=== PATIENT | female | born 1970 | race Caucasian/White ===

== ENCOUNTER 2017-06-06 16:15 | Outpatient (CLI) | payer BC | END 2017-06-06 16:16 | disposition home or self-care (01) | LOC: BICMAMMO 16:15 | PROVIDERS: ATTEND Obstetrics & Gynecology | DX: Z12.31 Encounter for screening mammogram for malignant neoplasm of breast (principal) | CPT/HCPCS: 77063; 77067 ==

== ENCOUNTER 2023-01-09 09:08 | Outpatient (CLI) | payer BC | END 2023-01-09 09:09 | disposition home or self-care (01) | LOC: BICCT 09:08 | PROVIDERS: ATTEND Internal Medicine | DX: K63.89 Other specified diseases of intestine (principal); K76.89 Other specified diseases of liver; K86.89 Other specified diseases of pancreas | CPT/HCPCS: 74177 ==

== ENCOUNTER 2023-01-19 09:34 | Outpatient (CLI) | payer BC | END 2023-01-19 09:35 | disposition home or self-care (01) | LOC: CT 09:34 | PROVIDERS: ATTEND Internal Medicine | DX: C18.2 Malignant neoplasm of ascending colon (principal); K63.89 Other specified diseases of intestine | CPT/HCPCS: 71260; 74170 ==

== ENCOUNTER 2023-01-24 12:30 | Inpatient (IN) | payer BC ==
[2023-01-24 13:25] VITALS: BMI 28.4
[2023-02-01] MEDS ORDERED: Sodium Chloride 0.9% 100 ML ONE (09:06)
[2023-02-01] MEDS ORDERED: cefOXitin 2 GM VIAL ONE (09:06)
[2023-02-01] MEDS ORDERED: Lidocaine 1% MPF 2 ML VIAL ONE (09:06)
[2023-02-01] MEDS ORDERED: Rocuronium Bromide 10 MG/ML (10ML VIAL) ONE ×2 (09:33→10:58)
[2023-02-01] MEDS ORDERED: Lidocaine 1% PF 5 ML VIAL ONE ×2 (09:33→10:58)
[2023-02-01] MEDS ORDERED: PROPOFOL 20 ML ONE (09:33)
[2023-02-01] MEDS ORDERED: fentaNYL PF 100 MCG/2 ML SYRINGE ONE ×3 (09:33→13:06)
[2023-02-01] MEDS ORDERED: Esmolol 100 MG/10 ML VIAL ONE (09:35)
[2023-02-01] MEDS ORDERED: diphenhydrAMINE 50 MG/ML VIAL IM PRN (09:37)
[2023-02-01] MEDS ORDERED: Naloxone HCl 0.4 mg/ml Vial IV PRN (09:37)
[2023-02-01] MEDS ORDERED: diphenhydrAMINE 50 MG/ML VIAL IVP PRN (09:37)
[2023-02-01] MEDS ORDERED: Ondansetron HCl/PF 4 MG/2 ML Vial IVP PRN (09:37)
[2023-02-01] MEDS ORDERED: Promethazine HCl 25 MG/ML VIAL IM PRN ×3 (09:37→13:37)
[2023-02-01] MEDS ORDERED: diphenhydrAMINE 25 MG CAP PO PRN (09:37)
[2023-02-01] MEDS ORDERED: Ondansetron PF 4 MG/2 ML Vial IVP PRN ×2 (09:37→13:37)
[2023-02-01] MEDS ORDERED: Communication Order-Pharmacy FS SCH (09:45)
[2023-02-01] MEDS ORDERED: Ondansetron PF 4 MG/2 ML Vial ONE ×2 (10:11→10:58)
[2023-02-01] MEDS ORDERED: SUGAMMADEX SODIUM 200 MG/2 ML VIAL ONE (10:11)
[2023-02-01] MEDS ORDERED: Bupivacaine 0.25% HCL 30 ML VIAL ONE (10:38)
[2023-02-01] MEDS ORDERED: EPINEPHrine 1 MG/ML VIAL ONE (10:38)
[2023-02-01] MEDS ORDERED: PHENYLEPHRINE-NS 100 MCG/ML 10 ML SYRINGE ONE ×2 (10:58→11:12)
[2023-02-01] MEDS ORDERED: PROPOFOL 200 MG/20 ML VIAL ONE (10:58)
[2023-02-01] MEDS ORDERED: Dexamethasone 20 MG/5 ML VIAL ONE ×2 (10:58→11:12)
[2023-02-01] MEDS ORDERED: Ipratropium/Albuterol 3 ML NEB NEB PRN (13:37)
[2023-02-01] MEDS ORDERED: HYDROcodone/Acetaminophen 7.5/325 mg Tablet PO PRN (13:37)
[2023-02-01] MEDS ORDERED: hydrALAZINE 20 MG/ML VIAL SLOW IVP PRN (13:37)
[2023-02-01] MEDS ORDERED: Fentanyl 100 MCG/2 ML VIAL SLOW IVP PRN (13:37)
[2023-02-01] MEDS ORDERED: Ketorolac Tromethamine 30 MG/ML VIAL ONE (14:01)
[2023-02-01] MEDS ORDERED: fentaNYL 50 mcg/mL 1 mL Vial ONE ×2 (14:02→15:29)
[2023-02-01] MEDS: cefOXitin Sodium 1 GM in Sodium Chloride 0.9% 100 ML IVPB SCH (17:10)
[2023-02-01] MEDS: D5 1/2 NS w/20 mEq KCL 1,000 ML IV SCH (17:46)
[2023-02-01] MEDS: Famotidine/PF 20 mg/2ml Vial SLOW IVP SCH (21:03)
[2023-02-01] MEDS: Ketorolac Tromethamine 30 MG/ML VIAL IVP PRN (21:07)
[2023-02-01] MEDS: Famotidine 20 MG TAB PO SCH (21:08)
[2023-02-02] MEDS: cefOXitin Sodium 1 GM in Sodium Chloride 0.9% 100 ML IVPB SCH (00:44)
[2023-02-02] MEDS: D5 1/2 NS w/20 mEq KCL 1,000 ML IV SCH ×3 (02:20→16:59)
[2023-02-02 04:53] LABS: #Monocytes 1.2 thou/uL (0.11-0.59); #Neutrophils 9.2 thou/uL (1.40-6.50); %Basophils 0.2 % (0.0-1.0); %Lymphocytes 12.9 % (21.0-51.0); %Monocytes 10.3 % (0.0-10.0); %Neutrophils 76.3 % (42.0-75.0); Hemoglobin 14.1 g/dL (12.0-16.0); Mean Corpuscular HGB CONC 33.6 g/dL (32.0-36.0); Mean Corpuscular Hemoglobin 31.9 pg (27.0-31.0); Mean Platelet Volume 9.8 fL (7.4-10.4); Platelet Count 283 10x3/uL (130-400); RBC Distribution Width 12.8 % (11.5-14.5); Red Blood Cell (RBC) Count 4.42 mill/uL (4.20-5.40)
[2023-02-02 05:13] LABS: Anion Gap 11 mmol/L (10-20); BUN (Urea Nitrogen) 7 mg/dL (9.8-20.1); Calc. Creatinine Clearance 93 mL/min (70-130); Calcium 9.2 mg/dL (7.8-10.44); Carbon Dioxide 25 mmol/L (22-29); Chloride 109 mmol/L (98-107); Estimated GFR 77; Glucose 137 mg/dL (70-105); Potassium 5.1 mmol/L (3.5-5.1); Sodium 140 mmol/L (136-145)
[2023-02-02] MEDS: Ketorolac Tromethamine 30 MG/ML VIAL IVP PRN (05:42)
[2023-02-02] MEDS: Famotidine 20 MG TAB PO SCH ×2 (09:38→21:04)
[2023-02-02] MEDS: Famotidine/PF 20 mg/2ml Vial SLOW IVP SCH ×2 (09:38→21:08)
[2023-02-03] MEDS: D5 1/2 NS w/20 mEq KCL 1,000 ML IV SCH ×2 (02:25→11:55)
[2023-02-03] MEDS: Ketorolac Tromethamine 30 MG/ML VIAL IVP PRN (06:10)
[2023-02-03] MEDS: Famotidine/PF 20 mg/2ml Vial SLOW IVP SCH (07:54)
[2023-02-03 09:06] VITALS: BP 101/76; TEMP 97.9
[2023-02-03] MEDS: Famotidine 20 MG TAB PO SCH (11:08)
== END 2023-02-03 12:40 | disposition home or self-care (01) | DRG 331 ==
LOC: SURG A 02-01 08:36 → SURG B 02-01 16:09
PROVIDERS: ADMIT Surgery; ATTEND Surgery
PROC: 0DBK4ZZ Excision of Ascending Colon, Percutaneous Endoscopic Approach (ICD-10-PCS; principal; 2023-02-01)
PROC: 8E0W4CZ Robotic Assisted Procedure of Trunk Region, Percutaneous Endoscopic Approach (ICD-10-PCS; 2023-02-01)
DX: C18.9 Malignant neoplasm of colon, unspecified (principal); G43.909 Migraine, unspecified, not intractable, without status migrainosus; Z90.49 Acquired absence of other specified parts of digestive tract; Z98.890 Other specified postprocedural states
CPT/HCPCS: 36415; 80048; 85025; 88309; A4314; J0171; J0694; J1100; J1650; J1885; J2405; J2704; J3010; J3480; J3490; S0020; S0028

== ENCOUNTER 2023-01-24 12:47 | Outpatient (CLI) | payer BC ==
[2023-01-24 15:21] LABS: #Basophils 0.1 10x3/uL (0.0-0.2); #Eosinphils 0.2 10x3/uL (0.0-0.5); #Monocytes 0.6 10x3/uL (0.0-1.1); #Neutrophils 3.5 10x3/uL (1.5-8.4); %Eosinophils 3.3 % (0.0-6.0); %Lymphocytes 31.5 % (18.0-47.0); %Monocytes 9.2 % (0.0-10.0); %Neutrophils 54.8 % (40.0-75.0); Hematocrit 40.6 % (34.9-44.5); Hemoglobin 13.8 g/dL (12.0-15.5); Mean Corpuscular Hemoglobin 31.9 pg (27.0-33.0); Mean Corpuscular Volume 93.8 fl (81.6-98.3); Mean Platelet Volume 10.8 fl (7.4-10.4); Platelet Count 272 10x3/uL (150-450); RBC Distribution Width 12.9 % (11.5-14.5); Red Blood Cell (RBC) Count 4.33 10x6/uL (3.90-5.03); White Blood Cell (WBC) Count 6.3 10x3/uL (3.5-10.5)
[2023-01-24 15:26] LABS: Anion Gap 14 mmol/L (10-20); BUN (Urea Nitrogen) 17 mg/dL (9.8-20.1); Calc. Creatinine Clearance 0 mL/min (70-130); Calcium 9.5 mg/dL (7.8-10.44); Carbon Dioxide 26 mmol/L (22-29); Chloride 106 mmol/L (98-107); Estimated GFR 93; Glucose 82 mg/dL (70-105); Potassium 4.2 mmol/L (3.5-5.1); Sodium 142 mmol/L (136-145)
[2023-01-24 20:26] LABS: Hemoglobin A1c 5.6 % (4.0-6.0)
== END 2023-01-24 12:48 | disposition home or self-care (01) ==
LOC: LABBT 12:47
PROVIDERS: ATTEND Surgery
DX: Z01.812 Encounter for preprocedural laboratory examination (principal); C18.2 Malignant neoplasm of ascending colon
CPT/HCPCS: 80048; 83036; 85025

== ENCOUNTER 2024-02-27 15:29 | Outpatient (CLI) | payer BC | END 2024-02-27 15:30 | disposition home or self-care (01) | LOC: BICMRI 15:29 | PROVIDERS: ATTEND Orthopaedic Surgery Hand Surgery | DX: S63.591A Other specified sprain of right wrist, initial encounter (principal); S63.8X1A Sprain of other part of right wrist and hand, initial encounter; S52.571D Other intraarticular fracture of lower end of right radius, subsequent encounter for closed fracture with routine healing; R60.0 Localized edema ==